=== PATIENT | male | born 1965 | race Caucasian/White ===

== ENCOUNTER 2016-07-03 18:57 | Observation (INO) | payer MEDICAID ==
[2016-07-03] MEDS ORDERED: MORPHINE SULFATE INJ 2 MG IVP PRN (18:59)
[2016-07-03] MEDS ORDERED: NITROSTAT SL PRN (18:59)
[2016-07-03] MEDS ORDERED: LOVENOX INJ 40 MG SYR SC SCH (21:00)
[2016-07-03 21:09] LABS: BASOPHILS % (AUTO) 0.6 % (0.2-1.0); EOSINOPHILS % (AUTO) 0.2 % (0.9-2.9); HEMATOCRIT 48.1 % (42.0-54.0); HEMOGLOBIN 16.2 g/dL (13.5-18.0); LYMPHOCYTES # (AUTO) 1.4 X10^3/uL (1.3-2.9); LYMPHOCYTES % (AUTO) 17.4 % (21.0-51.0); MEAN CORPUSCULAR HEMOGLOBIN 30.1 pg (27.0-34.0); MEAN CORPUSCULAR HGB CONC 33.8 g/dL (33.0-35.0); MEAN CORPUSCULAR VOLUME 89.2 fL (80.0-100.0); MEAN PLATELET VOLUME 7.8 fL (7.4-11.0); MONOCYTES # (AUTO) 0.4 x10^3/uL (0.3-0.8); MONOCYTES % (AUTO) 5.4 % (0.0-13.0); NEUTROPHILS # (AUTO) 6.1 x10^3/uL (2.2-4.8); NEUTROPHILS % (AUTO) 76.4 % (42.0-75.0); PLATELET COUNT 198 X10^3/uL (150.0-450.0); RED BLOOD COUNT 5.39 X10^6/uL (4.7-6.0); RED CELL DISTRIBUTION WIDTH 14.4 % (11.6-16.5); WHITE BLOOD COUNT 7.9 X10^3/uL (3.6-10.0)
--- NOTE | 2016-07-03 21:20 | RAD ---
HISTORY: Chest pain. Study: Single-view chest. Comparison: May 15, 2016. Findings: The trachea is midline. The cardiac silhouette is at the upper limits of normal in size and grossly unchanged. Subtle reticulonodular opacities scattered throughout both lungs are stable. There is no focal consolidation, pleural effusion or pneumothorax. The bony thorax is grossly unremarkable. IMPRESSION: No acute cardiopulmonary disease or concerning change compared with May 15, 2016. Reported By:
[2016-07-03 21:23] LABS: ALANINE AMINOTRANSFERASE 47 Units/L (12-78); ALBUMIN 3.9 g/dL (3.4-5.0); ALKALINE PHOSPHATASE 141 Units/L (46-116); ASPARTATE AMINO TRANSFERASE 18 Units/L (15-37); BLOOD UREA NITROGEN 10 mg/dL (7-18); CALCIUM 8.7 mg/dL (8.5-10.1); CARBON DIOXIDE 30.2 mmol/L (21-32); CHLORIDE 101 mmol/L (98-107); COR NA(FOR HYPERGLY) 145 mmol/L (136-145); GLUCOSE 275 mg/dL (65-99); MAGNESIUM 1.6 mg/dL (1.7-2.9); SODIUM 141 mmol/L (136-145); TOTAL PROTEIN 7.9 g/dL (6.4-8.2); eGFR BLACK RACES > 60 (>60); eGFR NON BLACK RACES > 60 (>60)
[2016-07-03 21:35] LABS: CREATINE KINASE MB < 1.0 ng/mL (0-4.0); TROPONIN I 0.08 ng/mL (0-1.5)
[2016-07-03 21:48] VITALS: BMI 31.1
[2016-07-03 21:48] LABS: CREATINE KINASE 55 Units/L (39-308)
[2016-07-03 21:49] LABS: CKMB % 1.8 % (<4)
--- NOTE | 2016-07-03 21:57 | DR.H&P ---
H&P - History & Physical for Day of: H&P Date: 07/03/16 - Chief Complaint Chief Complaint: Chest tightness and shortness of breath with exertion - Allergies Allergies/Adverse Reactions: Allergies Allergy/AdvReac Type Severity Reaction Status Date / Time latex Allergy Intermediate RASH Uncoded 05/14/16 15:05 - History of Present Illness History of Present Illness: The patient is a 50yo WM who has had increasing fatigue with exertion. Had episode last week of syncope and was watched overnight at [facility]. Patient today developed chest tightness while climbing stairs. States he became SOB and lightheaded. States that symptoms did improve after rest. Did have heart cath with no intervention needed 2 years ago at [facility] with Dr Colvin. Has DM 1 on insulin pump. - Past Medical History Past Medical History: Depression, Diabetes, Dyslipidemia, Hypertension Additional Medical History: Essential Tremors, Left knee pain, Chronic pain syncdrome, Restless leg syndrome - Past Surgical History Surgical History: Cholecystectomy, Ortho Surgery Additional Surgical History: Multiple EGDs - Family History Family Medical History: Diabetes Mellitus, [place], Hypertension - Social History Does patient currently use any type of tobacco product: Yes Have you used tobacco products in the last 12 months: Yes Type of Tobacco Use: Smokeless How many years tobacco product used: 19 Alcohol Use: None Drug Use: None - Review of Systems Constitutional: Weakness Eyes: No Symptoms Reported ENT: No Symptoms Reported Respiratory: SOB with Excertion Cardiovascular: Chest Pain, Light Headedness Gastrointestinal: No Symptoms Reported Genitourinary: No Symptoms Reported Musculoskeletal: No Symptoms Reported Skin: No Symptoms Reported Neurological: No Symptoms Reported - Physical Exam Vital Signs: Blood Pressure [Right Arm] 133/72 Blood Pressure 133/72 Oriented: Normal Eyes: Normal Ear: Normal Nose: Normal Throat: Normal Respiratory: Clear Throughout Cardiovascular: Normal : Normal Auscultation: Bowel Sounds: Normal Palpation: Normal Tenderness: Normal Skin: Normal Musculoskeletal: Back:Lumbar, Tender, Motor Deficit (coarse tremors), Sensory Deficit Psychiatric: Normal Mood Description: Calm Affect: Normal Speech Pattern: Clear - Assessment/Plan (1) Chest tightness Status: Acute Plan: Cardiac Enzymes and EKGS, Lovenox (2) Hypomagnesemia Status: Acute Plan: Infuse Mag 2 gms (3) SOB (shortness of breath) on exertion Status: Acute Plan: CXR (4) Diabetes mellitus type 1 Qualifiers: Diabetes mellitus complication status: with neurologic complications Diabetes mellitus complication detail: with polyneuropathy Diabetic retinopathy severity: D Proliferative retinopathy type: P Diabetes mellitus macular edema: D Laterality: L Chronic kidney disease stage: C Qualified Code(s): E10.42 - Type 1 diabetes mellitus with diabetic polyneuropathy Status: Acute Plan: BS checks
[2016-07-03] MEDS ORDERED: HUMULIN R SUBCUT PRN (22:02)
[2016-07-03] MEDS: MAGNESIUM SULFATE 1 GM/100 mL PREMIX 1 GM/100 ML BAG IV SCH ×2 (22:30→23:20)
[2016-07-03] MEDS ORDERED: METHADONE HCL PO PRN (22:55)
[2016-07-03] MEDS ORDERED: LOPRESSOR TAB 25 MG PO SCH (23:00)
[2016-07-03] MEDS ORDERED: TOPAMAX PO SCH (23:00)
[2016-07-03] MEDS ORDERED: TEGRETOL 200 MG PO SCH (23:00)
[2016-07-03] MEDS ORDERED: EFFEXOR TAB 75 MG (BID DOSING) PO SCH (23:00)
[2016-07-03] MEDS: NAPROSYN PO SCH (23:18)
[2016-07-03] MEDS: LYRICA CAP 100 MG PO SCH (23:18)
[2016-07-04 01:27] LABS: CREATINE KINASE 51 Units/L (39-308); CREATINE KINASE MB < 1.0 ng/mL (0-4.0); TROPONIN I < 0.02 ng/mL (0-1.5)
[2016-07-04 04:19] VITALS: BP 131/71
[2016-07-04] MEDS: NAPROSYN PO SCH (05:48)
[2016-07-04] MEDS: LYRICA CAP 100 MG PO SCH (05:48)
[2016-07-04 05:53] LABS: CHOL/HDL RATIO 3.2 (0.0-5.0)
[2016-07-04 05:57] LABS: CKMB % 1.4 % (<4); CREATINE KINASE 70 Units/L (39-308); CREATINE KINASE MB < 1.0 ng/mL (0-4.0); MAGNESIUM 2.1 mg/dL (1.7-2.9); TROPONIN I < 0.02 ng/mL (0-1.5)
[2016-07-04] MEDS ORDERED: INSULIN LISPRO SC SCH (09:00)
[2016-07-04] MEDS ORDERED: MYSOLINE PO SCH ×2 (09:00→21:00)
[2016-07-04] MEDS ORDERED: DEMADEX PO SCH (09:00)
[2016-07-04] MEDS ORDERED: ACCUPRIL PO SCH (09:00)
[2016-07-04] MEDS ORDERED: DILAUDID PO SCH (09:00)
[2016-07-04] MEDS ORDERED: ZYRTEC TAB 10 MG PO SCH (09:00)
[2016-07-04] MEDS ORDERED: SNACK - Diabetic Appropriate PO SCH (20:00)
[2016-07-04] MEDS ORDERED: REQUIP PO SCH (21:00)
[2016-07-04] MEDS ORDERED: VALIUM PO SCH (21:00)
[2016-07-04] MEDS ORDERED: LIPITOR TAB 40 MG PO SCH (21:00)
== END 2016-07-04 06:25 | disposition short-term general hospital (02) ==
LOC: MED/SURG 18:57
PROVIDERS: ADMIT Internal Medicine; ATTEND Internal Medicine
DX: R07.89 Other chest pain (principal); R42 Dizziness and giddiness; E10.65 Type 1 diabetes mellitus with hyperglycemia; R06.02 Shortness of breath; R55 Syncope and collapse; F32.89 Other specified depressive episodes; E78.2 Mixed hyperlipidemia; I10 Essential (primary) hypertension; E83.42 Hypomagnesemia; E10.42 Type 1 diabetes mellitus with diabetic polyneuropathy
CPT/HCPCS: 36415; 71010; 80053; 80061; 82550; 82553; 83735; 84484; 85025; 85610; 85730; 93005; 93010; A4222; G0378; J1650

== ENCOUNTER 2022-08-19 19:23 | Inpatient (IN) ==
[2022-08-19] MEDS ORDERED: NovoLIN R (or HumuLIN R) SUBCUT PRN (20:41)
[2022-08-19 21:41] LABS: BASOPHILS # (AUTO) 0.1 X10^3/uL (0.0-0.1); BASOPHILS % (AUTO) 0.8 % (0.2-1.0); EOSINOPHILS % (AUTO) 0.1 % (0.9-2.9); HEMATOCRIT 37.8 % (42.0-54.0); HEMOGLOBIN 12.9 g/dL (13.5-18.0); MEAN CORPUSCULAR HEMOGLOBIN 28.1 pg (27.0-34.0); MEAN CORPUSCULAR VOLUME 82.6 fL (80.0-100.0); MEAN PLATELET VOLUME 8.8 fL (7.4-11.0); MONOCYTES # (AUTO) 0.4 x10^3/uL (0.3-0.8); MONOCYTES % (AUTO) 5.1 % (0.0-13.0); NEUTROPHILS # (AUTO) 6.8 x10^3/uL (2.2-4.8); PLATELET COUNT 224 X10^3/uL (150.0-450.0); RED BLOOD COUNT 4.58 X10^6/uL (4.7-6.0); RED CELL DISTRIBUTION WIDTH 18.7 % (11.6-16.5); WHITE BLOOD COUNT 8.3 X10^3/uL (3.6-10.0)
[2022-08-19 21:54] LABS: ALANINE AMINOTRANSFERASE 21 Units/L (12-78); ALBUMIN 3.5 g/dL (3.4-5.0); ALKALINE PHOSPHATASE 110 Units/L (46-116); ASPARTATE AMINO TRANSFERASE 20 Units/L (15-37); BLOOD UREA NITROGEN 23 mg/dL (7-18); CALCIUM 7.9 mg/dL (8.5-10.1); CARBON DIOXIDE 33.3 mmol/L (21-32); CHLORIDE 98 mmol/L (98-107); COR NA(FOR HYPERGLY) 143 mmol/L (136-145); CREATININE 1.58 mg/dL (0.70-1.30); GLUCOSE 385 mg/dL (65-99); POTASSIUM 4.1 mmol/L (3.5-5.1); SODIUM 136 mmol/L (136-145); TOTAL PROTEIN 7.1 g/dL (6.4-8.2); eGFR NON BLACK RACES 49 (>60)
--- NOTE | 2022-08-19 22:10 | CT ---
History: SEVERE TREMORS, HX. SEIZURES WITH BRAIN STIMULATOR Relevant Clinical InformationExam :BRAIN W/O CONTechnique: Thin section axial ct images of the brain were obtained from the foramen magnum to the vertex without contrast. Sagittal and coronal reconstructions were also performed.Comparison: NoneFindings:The ventricles are within normal limits in size. No midline shift, mass effect or extra-axial fluid collections. No evidence of acute hemorrhage or acute macroinfarction. Bilateral neuro stimulating electrodes within the brain.The visualized paranasal sinuses and mastoids are unremarkable. The calvarium is intact.Impression:No acute intracranial pathology.Electronically signed by: Ankit Jasso (August 19, 2022 22:08:29)
[2022-08-19] MEDS: NS 1,000 ML IV 1,000 ML IV SCH (22:15)
[2022-08-19 22:52] LABS: COLOR,URINE YELLOW (YELLOW)
[2022-08-19 22:56] LABS: BILIRUBIN,URINE NEGATIVE (NEGATIVE); BLOOD/HEMOGLOBIN,URINE 1+ (NEGATIVE); GLUCOSE, URINE 4+ (NEGATIVE); KETONES,URINE NEGATIVE (NEGATIVE); LEUKOCYTE ESTERASE ,URINE NEGATIVE (NEGATIVE); NITRITES,URINE NEGATIVE (NEGATIVE); PROTEIN,URINE 2+ (NEGATIVE); UROBILINOGEN,URINE NORMAL (NORMAL)
[2022-08-19 23:10] LABS: APPEARANCE,URINE SLIGHTLY HAZY (CLEAR)
[2022-08-19 23:13] LABS: BACTERIA,URINE 1+ /HPF (NEGATIVE); CALCIUM OXALATE CRYSTALS,UR FEW /HPF (NEGATIVE); HYALINE CASTS, URINE MANY /LPF (NEGATIVE); SQUAMOUS EPITHELIAL CELL,UR FEW /HPF (NEGATIVE); TRANSITIONAL EPI CELLS,URINE FEW /HPF (NEGATIVE)
[2022-08-19 23:14] LABS: OTHER CRYSTALS,URINE MODERATE /HPF (NEGATIVE)
[2022-08-19 23:15] LABS: GRANULAR CASTS,URINE RARE /LPF (NEGATIVE)
[2022-08-20] MEDS: SNACK - Diabetic Appropriate PO SCH ×2 (00:31→20:17)
[2022-08-20] MEDS: ROCEPHIN VIAL 1 GRAM 1 G in NS 100 ML IV 100 ML IV SCH ×2 (01:20→21:14)
[2022-08-20 06:02] LABS: BASOPHILS % (AUTO) 0.4 % (0.2-1.0); EOSINOPHILS % (AUTO) 0.3 % (0.9-2.9); HEMATOCRIT 35.8 % (42.0-54.0); HEMOGLOBIN 12.2 g/dL (13.5-18.0); LYMPHOCYTES # (AUTO) 1.4 X10^3/uL (1.3-2.9); LYMPHOCYTES % (AUTO) 21.2 % (21.0-51.0); MEAN CORPUSCULAR HEMOGLOBIN 27.9 pg (27.0-34.0); MEAN CORPUSCULAR VOLUME 82.1 fL (80.0-100.0); MEAN PLATELET VOLUME 8.6 fL (7.4-11.0); MONOCYTES # (AUTO) 0.4 x10^3/uL (0.3-0.8); MONOCYTES % (AUTO) 6.7 % (0.0-13.0); NEUTROPHILS # (AUTO) 4.6 x10^3/uL (2.2-4.8); NEUTROPHILS % (AUTO) 71.4 % (42.0-75.0); PLATELET COUNT 194 X10^3/uL (150.0-450.0); RED BLOOD COUNT 4.37 X10^6/uL (4.7-6.0); RED CELL DISTRIBUTION WIDTH 18.5 % (11.6-16.5); WHITE BLOOD COUNT 6.4 X10^3/uL (3.6-10.0)
[2022-08-20 06:13] LABS: ALANINE AMINOTRANSFERASE 19 Units/L (12-78); ALBUMIN 3.1 g/dL (3.4-5.0); ALKALINE PHOSPHATASE 98 Units/L (46-116); ASPARTATE AMINO TRANSFERASE 19 Units/L (15-37); BLOOD UREA NITROGEN 17 mg/dL (7-18); CARBON DIOXIDE 32.8 mmol/L (21-32); CHLORIDE 102 mmol/L (98-107); COR CA(FOR HYPOALB) 8.7 mg/dL (8.5-10.1); COR NA(FOR HYPERGLY) 142 mmol/L (136-145); CREATININE 0.93 mg/dL (0.70-1.30); GLUCOSE 125 mg/dL (65-99); POTASSIUM 3.2 mmol/L (3.5-5.1); SODIUM 141 mmol/L (136-145); TOTAL PROTEIN 6.6 g/dL (6.4-8.2); eGFR NON BLACK RACES > 60 (>60)
[2022-08-20] MEDS ORDERED: POTASSIUM CHL 60 MEQ/NS 0.45% 500 ML IV PRN (10:33)
[2022-08-20] MEDS ORDERED: POTASSIUM CHLORIDE LIQ 20 MEQ UDC PO PRN (10:33)
[2022-08-20] MEDS ORDERED: KLOR-CON PO PRN (10:33)
[2022-08-20] MEDS ORDERED: MICRO K EXTEN CAP 10 MEQ PO PRN (10:33)
[2022-08-20] MEDS ORDERED: POTASSIUM CHL 40 MEQ/NS 0.45% 500 ML IV PRN (10:33)
[2022-08-20] MEDS ORDERED: K-DUR TAB 20 MEQ PO PRN (10:33)
[2022-08-20] MEDS ORDERED: K-RIDER 10 MEQ/NS 100 ML 10 MEQ/100 ML BAG IV PRN (10:33)
[2022-08-20] MEDS ORDERED: VALIUM PO PRN (10:42)
[2022-08-20] MEDS ORDERED: NAPROSYN PO PRN (10:42)
[2022-08-20] MEDS: NS 1,000 ML IV 1,000 ML IV SCH ×2 (11:00→11:01)
[2022-08-20] MEDS: PriLOSEC PO SCH (11:55)
[2022-08-20] MEDS: LOPRESSOR TAB 50 MG PO SCH ×2 (11:56→21:16)
[2022-08-20] MEDS: MYSOLINE PO SCH ×2 (11:56→21:16)
[2022-08-20] MEDS: ZESTRIL TAB 40 MG PO SCH (11:56)
[2022-08-20] MEDS: REQUIP PO SCH ×3 (11:56→21:15)
[2022-08-20] MEDS: EFFEXOR TAB 50 MG (BID DOSING) PO SCH ×2 (11:57→21:16)
[2022-08-20] MEDS: TRICOR TAB 145 MG PO SCH (11:57)
[2022-08-20] MEDS: FLOMAX PO SCH (11:58)
[2022-08-20] MEDS: MAGNESIUM SULFATE 1 GRAM/100 mL PREMIX 1 G/100 ML BAG IV PRN ×2 (12:42→16:02)
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
[2022-08-20] MEDS ORDERED: DILAUDID ONE ×2 (15:55→23:42)
[2022-08-20] MEDS: DILAUDID PO PRN ×2 (16:02→23:46)
[2022-08-20] MEDS: ROBINUL PO SCH ×2 (16:22→21:19)
[2022-08-20 18:57] VITALS: BMI 34.2
[2022-08-20] MEDS ORDERED: ZyrTEC TAB 10 MG ONE (19:15)
[2022-08-20] MEDS: ZyrTEC TAB 10 MG PO SCH (21:17)
[2022-08-20] MEDS: XALATAN EACHEYE SCH (21:19)
[2022-08-20] MEDS: LIORESAL PO PRN (21:27)
[2022-08-21] MEDS: REQUIP PO SCH ×3 (05:12→21:00)
[2022-08-21] MEDS: NS 1,000 ML IV 1,000 ML IV SCH ×2 (05:12→12:23)
[2022-08-21] MEDS ORDERED: DILAUDID ONE (05:37)
[2022-08-21] MEDS: DILAUDID PO PRN (05:42)
[2022-08-21 05:56] LABS: BASOPHILS % (AUTO) 0.6 % (0.2-1.0); EOSINOPHILS % (AUTO) 0.2 % (0.9-2.9); HEMATOCRIT 36.4 % (42.0-54.0); HEMOGLOBIN 12.2 g/dL (13.5-18.0); LYMPHOCYTES # (AUTO) 1.4 X10^3/uL (1.3-2.9); LYMPHOCYTES % (AUTO) 22.7 % (21.0-51.0); MEAN CORPUSCULAR HEMOGLOBIN 27.7 pg (27.0-34.0); MEAN CORPUSCULAR HGB CONC 33.6 g/dL (33.0-35.0); MEAN CORPUSCULAR VOLUME 82.5 fL (80.0-100.0); MEAN PLATELET VOLUME 8.7 fL (7.4-11.0); MONOCYTES # (AUTO) 0.5 x10^3/uL (0.3-0.8); MONOCYTES % (AUTO) 7.3 % (0.0-13.0); NEUTROPHILS # (AUTO) 4.4 x10^3/uL (2.2-4.8); NEUTROPHILS % (AUTO) 69.2 % (42.0-75.0); PLATELET COUNT 199 X10^3/uL (150.0-450.0); RED BLOOD COUNT 4.42 X10^6/uL (4.7-6.0); RED CELL DISTRIBUTION WIDTH 18.6 % (11.6-16.5); WHITE BLOOD COUNT 6.3 X10^3/uL (3.6-10.0)
[2022-08-21 06:23] LABS: ALANINE AMINOTRANSFERASE 29 Units/L (12-78); ALBUMIN 3.1 g/dL (3.4-5.0); ALKALINE PHOSPHATASE 98 Units/L (46-116); ASPARTATE AMINO TRANSFERASE 26 Units/L (15-37); BLOOD UREA NITROGEN 8 mg/dL (7-18); CARBON DIOXIDE 32.6 mmol/L (21-32); CHLORIDE 102 mmol/L (98-107); COR CA(FOR HYPOALB) 8.7 mg/dL (8.5-10.1); COR NA(FOR HYPERGLY) 142 mmol/L (136-145); CREATININE 0.72 mg/dL (0.70-1.30); GLUCOSE 239 mg/dL (65-99); POTASSIUM 4.1 mmol/L (3.5-5.1); SODIUM 139 mmol/L (136-145); TOTAL PROTEIN 6.5 g/dL (6.4-8.2); eGFR NON BLACK RACES > 60 (>60)
[2022-08-21] MEDS: PriLOSEC PO SCH (09:16)
[2022-08-21] MEDS: ZESTRIL TAB 40 MG PO SCH (09:16)
[2022-08-21] MEDS: EFFEXOR TAB 50 MG (BID DOSING) PO SCH ×2 (09:16→20:25)
[2022-08-21] MEDS: LOVENOX INJ 40 MG SYR SC SCH (09:16)
[2022-08-21] MEDS: TRICOR TAB 145 MG PO SCH (09:16)
[2022-08-21] MEDS: LOPRESSOR TAB 50 MG PO SCH ×2 (09:17→20:25)
[2022-08-21] MEDS: LASIX PO SCH (09:17)
[2022-08-21] MEDS: ROBINUL PO SCH ×2 (09:17→20:24)
[2022-08-21] MEDS: FLOMAX PO SCH (09:17)
[2022-08-21] MEDS: MYSOLINE PO SCH ×2 (09:17→20:25)
[2022-08-21] MEDS: LIORESAL PO PRN (15:10)
[2022-08-21] MEDS: ZyrTEC TAB 10 MG PO SCH (20:26)
[2022-08-21] MEDS: ROCEPHIN VIAL 1 GRAM 1 G in NS 100 ML IV 100 ML IV SCH (20:27)
[2022-08-21] MEDS: SNACK - Diabetic Appropriate PO SCH (20:28)
[2022-08-21] MEDS: XALATAN EACHEYE SCH (21:00)
[2022-08-22] MEDS: REQUIP PO SCH (05:22)
[2022-08-22 06:09] LABS: BASOPHILS % (AUTO) 0.3 % (0.2-1.0); EOSINOPHILS % (AUTO) 0.3 % (0.9-2.9); HEMOGLOBIN 12.8 g/dL (13.5-18.0); LYMPHOCYTES # (AUTO) 1.5 X10^3/uL (1.3-2.9); LYMPHOCYTES % (AUTO) 22.8 % (21.0-51.0); MEAN CORPUSCULAR HEMOGLOBIN 27.8 pg (27.0-34.0); MEAN CORPUSCULAR HGB CONC 33.6 g/dL (33.0-35.0); MEAN CORPUSCULAR VOLUME 82.9 fL (80.0-100.0); MEAN PLATELET VOLUME 8.9 fL (7.4-11.0); MONOCYTES # (AUTO) 0.4 x10^3/uL (0.3-0.8); MONOCYTES % (AUTO) 5.8 % (0.0-13.0); NEUTROPHILS # (AUTO) 4.5 x10^3/uL (2.2-4.8); NEUTROPHILS % (AUTO) 70.8 % (42.0-75.0); PLATELET COUNT 189 X10^3/uL (150.0-450.0); RED BLOOD COUNT 4.59 X10^6/uL (4.7-6.0); RED CELL DISTRIBUTION WIDTH 18.6 % (11.6-16.5); WHITE BLOOD COUNT 6.4 X10^3/uL (3.6-10.0)
[2022-08-22 06:22] LABS: ALANINE AMINOTRANSFERASE 33 Units/L (12-78); ALBUMIN 3.3 g/dL (3.4-5.0); ALKALINE PHOSPHATASE 108 Units/L (46-116); ASPARTATE AMINO TRANSFERASE 22 Units/L (15-37); BLOOD UREA NITROGEN 10 mg/dL (7-18); CALCIUM 8.1 mg/dL (8.5-10.1); CARBON DIOXIDE 35.4 mmol/L (21-32); CHLORIDE 101 mmol/L (98-107); COR CA(FOR HYPOALB) 8.7 mg/dL (8.5-10.1); COR NA(FOR HYPERGLY) 141 mmol/L (136-145); CREATININE 0.85 mg/dL (0.70-1.30); GLUCOSE 146 mg/dL (65-99); POTASSIUM 3.8 mmol/L (3.5-5.1); SODIUM 140 mmol/L (136-145); eGFR NON BLACK RACES > 60 (>60)
[2022-08-22] MEDS: EFFEXOR TAB 50 MG (BID DOSING) PO SCH (08:46)
[2022-08-22] MEDS: FLOMAX PO SCH (08:47)
[2022-08-22] MEDS: LASIX PO SCH (08:47)
[2022-08-22] MEDS: LOPRESSOR TAB 50 MG PO SCH (08:48)
[2022-08-22] MEDS: PriLOSEC PO SCH (08:48)
[2022-08-22] MEDS: TRICOR TAB 145 MG PO SCH (08:49)
[2022-08-22] MEDS: LOVENOX INJ 40 MG SYR SC SCH (08:50)
[2022-08-22] MEDS: ROBINUL PO SCH (08:50)
[2022-08-22] MEDS: MYSOLINE PO SCH (08:51)
[2022-08-22] MEDS: ZESTRIL TAB 40 MG PO SCH (08:56)
[2022-08-22 12:01] VITALS: BP 145/69
== END 2022-08-22 13:00 | disposition home or self-care (01) | DRG 690 ==
LOC: MED/SURG
PROVIDERS: ADMIT Internal Medicine; ATTEND Internal Medicine
DX: I10 Essential (primary) hypertension; N39.0 Urinary tract infection, site not specified; E10.621 Type 1 diabetes mellitus with foot ulcer; R26.89 Other abnormalities of gait and mobility; K21.9 Gastro-esophageal reflux disease without esophagitis; M51.36 Other intervertebral disc degeneration, lumbar region; E78.2 Mixed hyperlipidemia; E10.42 Type 1 diabetes mellitus with diabetic polyneuropathy; Z96.7 Presence of other bone and tendon implants; E10.65 Type 1 diabetes mellitus with hyperglycemia; E87.6 Hypokalemia; R53.1 Weakness; G40.802 Other epilepsy, not intractable, without status epilepticus; G25.2 Other specified forms of tremor